=== PATIENT | female | born 1930 | race Caucasian/White ===

== ENCOUNTER 2016-10-02 15:43 | Inpatient (IN) | payer MEDICARE, MEDICAID ==
[~2016-10-02] VITALS: Ht 160 cm; Wt 118.8 kg
[~2016-10-02 15:43] MED LIST: ALMACONE 360 M360 ML PO; ANTIVERT 12.512.5 MG PO; ANUSOL-HC SUPPO25 MG RC; ANUSOL-HC2.5% RC; ARICEPT 5MG PO; ARICEPT10 MG PO; ATARAX25 MG PO; ATIVAN 0.50.5 MG/TAB PO; ATROVENT NASAL15 ML NS; ATROVENTNS0.03% NS; CALCIUM CITRAT200 MG PO; CARDIZEM 90MG T90 MG PO; CELEBREX 200MG200 MG PO; CEPHALEXIN500 M1 PO; COLACE 100100 MG/CAP PO; COREG 3.123.125 MG/T PO; COREG 6.256.25 MG/TA PO; COUMADIN; COUMADIN 1MG1 MG/TAB PO; COUMADIN 2MG2 MG/TAB PO; COUMADIN4 MG PO; COZAAR100 MG PO; CRANBERRY 100 M1 SGL PO; CRANBERRY FRUI405 MG PO; CRANBERRY PO; DESYREL 50MG50 MG PO; DIGOXIN PO; DOLOPHINE; DULCOLAX S10 MG/SUPP RC; EFFEXOR 75M75 MG/TAB PO; FERROUS SU325 MG/TAB PO; FLONASEALLERGY NS; FOLIC ACID; FOLIC ACID0.4 MG PO; FORTAMET500 MG PO; GABAPENTIN100 M1 PO; GABAPENTIN300 M1 PO; GEMCOR600 MG PO; GLUCOPHAGE500 MG/TAB PO; HCTZ 25MG25 MG PO; HYDROCODONE/APAP PO; HYZAAR 25 MG-101 TAB PO; ICAPS TABLET1 EACH PO; IPRATROPIUM BROM3 M1 IH; JANTOVEN2 MG PO; LANOXIN 0.25M0.25 MG PO; LANTUS100 U/ML SC; LANTUS100 U/ML SQ; LASIX 20MG TABL20 MG PO; LASIX 40MG TABL40 MG PO; LEVAQUIN500 MG PO; MILK OF MA400 MG/52 PO; MIRALAX PA17 GM/Dose PO; MULTI VITAMINS1 TAB PO; NEURONTIN300 MG/CAP PO; NEXIUM 20MG CAP20 MG PO; NITRO-DUR0.4 MG/PAT TD; NORVASC 10MG10 MG PO; NOVOLOG 100U100 U/M1 SC; NOVOLOG 100U100 U/M1 SQ; NOVOLOG100 U/ML SC; PHENERGAN1.25 MG/ML PO; PREDNISONE20 MG PO; PROTONIX 40MG T40 MG PO; PROZAC 10MG10 MG PO; REQUIP 0.5MG0.5 MG PO; REQUIP 1MG T1 MG/TAB PO; RT SPIRIVA18 MCG IH; SENOKOT S 50 MG1 TAB PO; SINGULAIR10 MG PO; STIOLTO RESPIMAT4 GM IH; TEARS NATURALE1 EACH OP; THEO-DUR 2200 MG/TAB PO; TUMS500 MG PO; TYLENOL 325MG325 MG PO; TYLENOL PM EXTR1 TA1 PO; TYLENOL SU650 MG/SUP RC; VITAMIN D31000 IU PO; ZITHROMAX 250M250 MG PO; ZOCOR 20MG20 MG PO; ZOFRAN 4MG T4 MG/TAB PO; ZOLOFT 100MG100 MG PO; ZYRTEC 10MG10 MG PO; eye vitamin; lantus; mirapex; provigil; tiazac
[2016-10-28] VITALS (471 sets, daily range): BP systolic 84–140; BP diastolic 51–115; PULSE 99–120; TEMP 97–98.8; O2SAT 85–100
[2016-10-28 07:33] LABS: BASO % 0.4 % (0.0-2.0); EOS # 0.2 (0.0-0.7); EOS % 2.1 % (0-4.0); GRAN # 5.1 (1.4-6.5); GRAN % 62.1 % (42.2-75.2); LYMPH # 1.9 (1.2-3.4); LYMPH % 22.6 % (20.0-51.0); MEAN CELL VOLUME 88 fl (80.0-100.0); MEAN CORPUSCULAR HGB CONC 30 g/dl (33.0-37.0); MEAN PLATELET VOLUME 8.3 fl (7.4-10.4); MONO % 11.8 % (1.7-9.3); PLATELET COUNT 315 K/mm3 (130-400); RED BLOOD COUNT 2.97 M/mm3 (4.10-5.30); REDCELL DISTRIBUTION WIDTH-CV 13.4 % (11.5-14.5); WHITE BLOOD COUNT 8.2 K/mm3 (4.8-10.8)
[2016-10-28 07:36] LABS: HEMATOCRIT 26.2 % (37.0-47.0); HEMOGLOBIN 7.8 g/dl (12.5-16.0); MEAN CORPUSCULAR HEMOGLOBIN 26 pg (27.0-31.0)
[2016-10-28] MEDS ORDERED: ANUSOL-HC2.5% RC (08:07)
[2016-10-28] MEDS ORDERED: VITAMIN D 1001000 IU PO (08:15)
[2016-10-28 08:17] LABS: ADJUSTED CALCIUM 9.5 mg/dL (8.4-10.2); BILIRUBIN,TOTAL 0.6 mg/dL (0.0-1.0); CALCIUM 9.5 mg/dL (8.4-10.2); CREATININE, serum 0.98 mg/dL (0.52-1.25); POTASSIUM 3.9 mmol/L (3.4-5.0); TOTAL PROTEIN 8.3 gm/dL (6.4-8.2)
[2016-10-28] MEDS ORDERED: FERROUS SU325 MG/TAB PO (08:59)
[2016-10-28] MEDS ORDERED: MIRALAX PA17 GM/Dose PO (09:00)
[2016-10-28] MEDS ORDERED: COLACE 100100 MG/CAP PO (09:01)
[2016-10-28] MEDS ORDERED: NORCO 325 MG-51 TAB PO (09:03)
[2016-10-28] MEDS ORDERED: MONODOX100 PO (09:04)
[2016-10-28] MEDS ORDERED: PROAIR HFA0.09 MG/AC IH ×2 (09:05)
[2016-10-28] MEDS ORDERED: DEBROX OT (09:09)
[2016-10-28] MEDS ORDERED: TRIPLE ANTIBIOTI1 TU TP (09:10)
[2016-10-28] MEDS ORDERED: EFFEXOR XR75 MG/CAP PO (14:52)
[2016-10-28] MEDS ORDERED: UNIPHYL 400MG400 MG PO (14:53)
[2016-10-28 15:25] LABS: HEMATOCRIT 25.4 % (37.0-47.0); HEMOGLOBIN 7.6 g/dl (12.5-16.0)
[2016-10-28 15:29] LABS: CALCIUM 9.2 mg/dL (8.4-10.2); CREATININE, serum 1.16 mg/dL (0.52-1.25); MAGNESIUM 1.7 mg/dL (1.6-2.3); PHOSPHOROUS 4.2 mg/dL (2.5-4.5); POTASSIUM 4.1 mmol/L (3.4-5.0)
[2016-10-29] VITALS (235 sets, daily range): BP systolic 111–129; BP diastolic 66–89; PULSE 96–115; TEMP 97.1–98.2; O2SAT 83–100
[2016-10-29 06:43] LABS: CALCIUM 9.3 mg/dL (8.4-10.2); CREATININE, serum 0.95 mg/dL (0.52-1.25); MAGNESIUM 1.7 mg/dL (1.6-2.3); PHOSPHOROUS 3.9 mg/dL (2.5-4.5); POTASSIUM 4.2 mmol/L (3.4-5.0)
[2016-10-29 06:53] LABS: HEMATOCRIT 25.3 % (37.0-47.0); HEMOGLOBIN 7.8 g/dl (12.5-16.0)
[2016-10-30] VITALS (7 sets, daily range): BP systolic 115–155; BP diastolic 45–76; PULSE 74–102; TEMP 97.7–98.6
[2016-10-30 07:08] LABS: BASO % 0.3 % (0.0-2.0); EOS % 0.4 % (0-4.0); GRAN # 6.9 (1.4-6.5); GRAN % 69.2 % (42.2-75.2); LYMPH % 19.7 % (20.0-51.0); MEAN CELL VOLUME 90 fl (80.0-100.0); MEAN CORPUSCULAR HGB CONC 30 g/dl (33.0-37.0); MEAN PLATELET VOLUME 8.5 fl (7.4-10.4); MONO % 9.7 % (1.7-9.3); PLATELET COUNT 298 K/mm3 (130-400); RED BLOOD COUNT 2.93 M/mm3 (4.10-5.30); REDCELL DISTRIBUTION WIDTH-CV 13.6 % (11.5-14.5); WHITE BLOOD COUNT 9.9 K/mm3 (4.8-10.8)
[2016-10-30 07:13] LABS: HEMATOCRIT 26.3 % (37.0-47.0); HEMOGLOBIN 7.9 g/dl (12.5-16.0); MEAN CORPUSCULAR HEMOGLOBIN 27 pg (27.0-31.0)
[2016-10-30 07:20] LABS: CALCIUM 9.3 mg/dL (8.4-10.2); POTASSIUM 3.8 mmol/L (3.4-5.0)
[2016-10-31 06:07] VITALS: BP 137/66; PULSE 102; TEMP 98.8
[2016-10-31 10:46] VITALS: BP 118/60; PULSE 100; TEMP 97.9
[2016-10-31 15:04] VITALS: BP 133/74; PULSE 87; TEMP 98.7
[2016-10-31 18:12] VITALS: BP 129/73; PULSE 91; TEMP 98.3
[2016-10-31 21:02] VITALS: BP 132/64; PULSE 100; TEMP 97.6
[2016-11-01 05:53] VITALS: BP 160/91; PULSE 95; TEMP 98
[2016-11-01 10:21] VITALS: BP 160/89; PULSE 98; TEMP 98.5
[2016-11-01 11:23] VITALS: BP 160/89; PULSE 98; TEMP 98.5
== END 2016-11-01 12:09 | DRG 330 ==
LOC: INPTSU 10-28 06:14 → SURG 10-28 08:30 → ICU 10-28 13:44 → SURG 10-29 10:22
PROVIDERS: Family Medicine; Surgery
PROC: 8E0W4CZ Robotic Assisted Procedure of Trunk Region, Percutaneous Endoscopic Approach (ICD-10-PCS; 2016-10-28)
PROC: 0DTF4ZZ Resection of Right Large Intestine, Percutaneous Endoscopic Approach (ICD-10-PCS; principal; 2016-10-28 08:30)
DX: C18.2 Malignant neoplasm of ascending colon (principal); K91.3 Postprocedural intestinal obstruction; Z68.42 Body mass index [BMI] 45.0-49.9, adult; I12.9 Hypertensive chronic kidney disease with stage 1 through stage 4 chronic kidney disease, or unspecified chronic kidney disease; E11.22 Type 2 diabetes mellitus with diabetic chronic kidney disease; N18.3 Chronic kidney disease, stage 3 (moderate); G47.33 Obstructive sleep apnea (adult) (pediatric); M06.9 Rheumatoid arthritis, unspecified; E66.9 Obesity, unspecified; D50.0 Iron deficiency anemia secondary to blood loss (chronic)
CPT/HCPCS: 99222; 99232-AI; 99233-AI; A4315; C1751; E0710; J0330; J0694; J1100; J1335; J1644; J1650; J1815; J2270; J2370; J2405; J2704; J3010; J7030; J7512; P9016

== ENCOUNTER → 2016-10-26 | Outpatient (CLI) | payer MEDICARE, MEDICAID ==
[~2016-10-26] MED LIST changes: +DEBROX OT; +EFFEXOR XR75 MG/CAP PO; +MONODOX100 PO; +NORCO 325 MG-51 TAB PO; +PROAIR HFA0.09 MG/AC IH; +TRIPLE ANTIBIOTI1 TU TP; +UNIPHYL 400MG400 MG PO; +VITAMIN D 1001000 IU PO
== END ==
LOC: COL.RAD 16:26
DX: I50.1 Left ventricular failure, unspecified (principal); I50.9 Heart failure, unspecified; R07.81 Pleurodynia

== ENCOUNTER → 2016-11-15 | Outpatient (CLI) | payer MEDICARE, MEDICAID | LOC: COL.RAD 08:16 | DX: M51.34 Other intervertebral disc degeneration, thoracic region (principal); M41.86 Other forms of scoliosis, lumbar region; M47.896 Other spondylosis, lumbar region ==

== ENCOUNTER → 2017-06-14 | Outpatient (CLI) | payer MEDICARE, MEDICAID | LOC: COL.RAD 10:40 | DX: C18.2 Malignant neoplasm of ascending colon (principal); R46.89 Other symptoms and signs involving appearance and behavior | CPT/HCPCS: Q9967 ==

== ENCOUNTER → 2017-08-11 | Outpatient (CLI) | payer MEDICARE, MEDICAID | LOC: COL.PUL 08:23 | PROVIDERS: Internal Medicine Pulmonary Disease | DX: I08.3 Combined rheumatic disorders of mitral, aortic and tricuspid valves (principal); R91.8 Other nonspecific abnormal finding of lung field; N20.0 Calculus of kidney; M43.8X6 Other specified deforming dorsopathies, lumbar region ==

== ENCOUNTER → 2017-10-23 | Outpatient (CLI) | payer MEDICARE, MEDICAID ==
[~2017-10-23] MED LIST changes: +ALUMINUM & MAG355 ML PO; +ARTIFICIAL TEAR15 M7 OP; +ASPER-FLEX10% TP; +ASPERCREME85G TP; +BUMEX2 MG PO; +EFFEXOR XR37.5 MG/CA PO; -EFFEXOR XR75 MG/CAP PO; +KAYEXALATE15 GM/60 M PO; +LIQUIFILM TEARS15 ML OU; +NORCO 325 MG-7.1 TAB PO; +NYAMYC100000 U/G TP; +RISPERDAL 1M1 MG/TAB PO; +SPIRIVA RE2.5 MCG/Ac IH; +ZAROXOLYN5 MG PO
[2017-10-23 14:18] LABS: CALCIUM 8.8 mg/dL (8.4-10.2); CREATININE, serum 1.48 mg/dL (0.52-1.25)
[2017-10-23 14:27] LABS: POTASSIUM 5.9 mmol/L (3.4-5.0)
== END ==
LOC: ZCOL.LAB 13:00
PROVIDERS: Nurse Practitioner Family
DX: R60.9 Edema, unspecified (principal)